=== PATIENT | female | born 1990 | race African-American/Black ===

== ENCOUNTER 2023-02-20 21:29 | Emergency (ER) | payer OTHER ==
[~2023-02-20] VITALS: Ht 167.6 cm; Wt 99.0 kg
[2023-02-20] MEDS ORDERED: KETOROLAC 60MG/2ML VIAL IM STA (22:31)
[2023-02-20 23:09] VITALS: BP 104/74
== END 2023-02-20 23:00 | disposition home or self-care (01) ==
LOC: ER 21:29
DX: S00.83XA Contusion of other part of head, initial encounter (principal); Z88.0 Allergy status to penicillin; W22.8XXA Striking against or struck by other objects, initial encounter; Y93.89 Activity, other specified; Y92.89 Other specified places as the place of occurrence of the external cause; Y99.8 Other external cause status
CPT/HCPCS: 81025; 96372; 99283; J1885

== ENCOUNTER → 2023-02-21 | Outpatient (CLI) | payer OTHER | END | disposition home or self-care (01) | LOC: RAD 12:01 | DX: S06.0XAA Concussion with loss of consciousness status unknown, initial encounter (principal); X58.XXXA Exposure to other specified factors, initial encounter; Y93.89 Activity, other specified; Y92.89 Other specified places as the place of occurrence of the external cause; Y99.8 Other external cause status ==